=== PATIENT | female | born 2000 | race Caucasian/White ===

== ENCOUNTER 2024-08-04 20:52 | Emergency (ER) | payer OTHER, SELFPAY ==
[2024-08-04 21:07] VITALS: BP 114/51; BP 124/92; PULSE 80; PULSE 92; RESP 20; TEMP 36.9; O2SAT 97; O2SAT 98; BMI 30.4
[2024-08-04 21:16] VITALS: BP 114/51; PULSE 84; RESP 20; TEMP 36.9
--- NOTE | 2024-08-04 22:08 | PC.NURSE ---
Staff from facility called to ensure patient arrival. Assured staff that patient is here and safe. They provided the following phone number to call when patient is ready for discharge: [phone].
--- NOTE | 2024-08-04 22:12 | ED.MEDCLEAR ---
HPI - Medical Clearance General Chief complaint: Medical Clearance Stated complaint: needs med eval/drug screening per recovery program Time Seen by Provider: 08/04/24 22:12 Source: patient Mode of arrival: ambulatory Limitations: no limitations History of Present Illness ED Provider: HPI Narrative: Patient is coming from [facility] paraphernalia was found in her room per police the patient needs drug screening before going back to the recovery facility patient's admit using cocaine 2 days ago patient denies any other substance abuse Related Information Allergies Allergy/AdvReac Type Severity Reaction Status Date / Time fish derived [fish] Allergy Anaphylaxis Verified 08/04/24 21:14 Review of Systems Review of Systems: Yes all other systems are reviewed and are negative [facility] Social History Social History Smoked in Last 30 Days: Yes Substance Use Type: Crack/Cocaine Advance Directives: No Advance Directives Information Provided: No Do you have a plan to hurt others: No Plan Patient : No Physical Exam Vital Signs: Vital Signs: Last Vital Signs Temp 98.4 F 08/04/24 23:52 Pulse 84 08/04/24 23:52 Resp 20 08/04/24 23:52 BP 114/51 L 08/04/24 23:52 Pulse Ox 98 08/04/24 21:07 O2 Del Method Room Air 08/04/24 23:52 BMI result Body Mass Index 30.4 Appearance: Alert. Oriented X3. No acute distress. Eyes: PERRLA, No Nystagmus ENT: Pharynx normal. Oral Mucosa moist Neck: Normal inspection. Neck supple. CVS: Normal heart rate and rhythm. Pulses normal. Respiratory: No respiratory distress. Equal air entry bilateral, no wheezing/rales/rhonchi Abdomen: Soft and nontender. Bowel sounds are present, no mass palpable, no CVA tenderness Skin: Skin warm and dry. Normal skin color. Normal skin turgor. Extremities: No lower extremity edema. No calf tenderness Neuro: Oriented X 3. No motor deficit. No sensory deficit.No cerebellar signs , cranial nerves II-XII intact Medical Decision Making Medical Decision Making MDM Narrative: Patient with positive methadone, fentanyl, cocaine and marijuana will sent back to recovery home Lab Data [facility] Lab Attestation statement: I reviewed the patient's lab results. Labs: Lab Results 08/04/24 Range/Units 22:30 Urine Opiates Screen Not Detected (Not Detect) Ur Buprenorphine Scrn Not Detected (Not Detect) ng/mL Ur Oxycodone Screen Not Detected (Not Detect) ng/mL Urine Methadone Screen Positive H (Not Detect) ng/mL Urine Fentanyl Screen POSITIVE H (Not Detect) Ur Barbiturates Screen Not Detected (Not Detect) Ur Phencyclidine Scrn Not Detected (Not Detect) Ur Amphetamines Screen Not Detected (Not Detect) U Benzodiazepines Scrn Not Detected (Not Detect) Urine Cocaine Screen POSITIVE H (Not Detect) U Marijuana (THC) Screen POSITIVE H (Not Detect) Discharge Plan Discharge Clinical Impression: Polysubstance abuse Patient Disposition: Home, Self-Care Instructions: Polysubstance Abuse (ED) Additional Instructions: Your urine is positive for fentanyl and cocaine stop using them Interventions: ED Discharge Assessment Last Done: 08/04/24 23:52 Discharge Date/Time: 08/04/24 23:52 Print Language: Tamazight
[2024-08-04 22:47] LABS: Amphetamine Screen Urine Not Detected (Not Detect); Barbiturates, Urine Not Detected (Not Detect); Benzodiazepines Screen Urine Not Detected (Not Detect); Buprenorphine Scr Not Detected (Not Detect); Cannabinoid Screen Urine POSITIVE (Not Detect); Cocaine Screen Urine POSITIVE (Not Detect); Fentanyl, urine POSITIVE (Not Detect); Methadone Screen, Urine Positive (Not Detect); Opiate Screen Urine Not Detected (Not Detect); Oxycodone Screen Urine Not Detected (Not Detect); Phencyclidine Screen Urine Not Detected (Not Detect)
--- NOTE | 2024-08-04 23:51 | PC.NURSE ---
this rn assumed care of pt, pt refusing to stay in room to wait for [facility]. pt reports she does not want to go back there. security helped pt outside, per security pt walked off [facility]. charge manager aware.
[2024-08-04 23:52] VITALS: BP 114/51; PULSE 84; RESP 20; TEMP 36.9
== END 2024-08-04 23:52 | disposition home or self-care (01) ==
PROVIDERS: Emergency Provider Internal Medicine
DX: F11.10 Opioid abuse, uncomplicated (principal); F14.10 Cocaine abuse, uncomplicated; F12.10 Cannabis abuse, uncomplicated; Z51.81 Encounter for therapeutic drug level monitoring; Z71.51 Drug abuse counseling and surveillance of drug abuser; Z79.899 Other long term (current) drug therapy
CPT/HCPCS: 80307; 99283; 99284